=== PATIENT | male | born 1950 | race Hispanic/Latino ===

== ENCOUNTER 2018-10-10 08:52 | Outpatient (CLI) | payer MEDICARE, MEDICAID ==
--- NOTE | 2018-10-10 11:23 | MRI ---
MRI RIGHT HIP WITH AND WITHOUT CONTRAST: HISTORY: R22.9, soft tissue swelling. Pain. Palpable abnormality. COMPARISON: None. FINDINGS: There is an [id number] marker over the anterior medial right thigh. At this area is focal, inc reased, superficial fat. No abnormal soft tissue mass. No abnormal enhancement. No abnormal septat ions. No focal fluid collection. The underlying musculature and fascia are intact. No adjacent thalia nopathy. The intrapelvic soft tissues are unremarkable. The prostate is mildly enlarged. Mild tendinosis of the common hamstring tendon on the right. Underlying marrow signal, without abnor mality. Moderate-sized acetabular osteophytes bilaterally. 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 IMPRESSION: Asymmetric fatty deposition at the area of interest, anterior medial right thigh, without underlying soft tissue mass. This is a benign finding. POS: [facility]
== END 2018-10-10 08:53 | disposition home or self-care (01) ==
LOC: BICMRI 08:52
PROVIDERS: ATTEND Internal Medicine
DX: M79.89 Other specified soft tissue disorders (principal)
CPT/HCPCS: 82565